=== PATIENT | female | born 1965 | race Two or more races ===

== ENCOUNTER 2024-05-17 08:45 | Emergency (ER) | payer BC, MEDICAID ==
[~2024-05-17] VITALS: Ht 154.9 cm; Wt 76.8 kg
[2024-05-17 09:20] LABS: Basophils # (auto) 0 10 ^3/uL (0-0.2); Basophils % (auto) 0.8 % (0.0-2.0); Eosinophils # (auto) 0.2 10 ^3/uL (0-0.8); Eosinophils % (auto) 4.8 % (0.0-7.0); Hematocrit 40.1 % (36.0-46.0); Hemoglobin 13.7 g/dL (12.2-16.2); Lymphocytes % (auto) 30.9 % (10.0-50.0); Mean Corpuscular Hemoglobin 31.2 pg (28.0-32.0); Mean Corpuscular Hgb Conc. 34.2 g/dL (32.0-36.0); Mean Corpuscular Volume 91.2 fL (80.0-100.0); Monocytes # (auto) 0.3 10 ^3/uL (0-1.3); Monocytes % (auto) 9.8 % (0.0-12.0); Neutrophils # (auto) 1.8 10 ^3/uL (1.6-8.6); Neutrophils % (auto) 53.7 % (37.0-80.0); Nucleated Red Blood Cells % 0.4 %; Platelet Count (auto) 229 10^3/uL (140-450); Red Cell Distribution Width 14.2 % (11.8-14.3); White Blood Cell 3.3 10^3/uL (4.4-10.8)
[2024-05-17 09:35] LABS: Alanine Aminotransferase 10 U/L (7-40); Albumin 4.1 g/dL (3.2-4.8); Alkaline Phosphatase 101 U/L (46-116); Anion Gap 6 (5-15); Aspartate Aminotransferase 12 U/L (13-40); BUN/Creatinine Ratio 10.6 (10.0-20.0); Bilirubin, Total 0.5 mg/dL (0.2-1.0); Blood Urea Nitrogen 10 mg/dL (9-23); Calcium 9.5 mg/dL (8.7-10.4); Carbon Dioxide 26 mmol/L (20-31); Chloride 110 mmol/L (98-107); Glucose 94 mg/dL (74-106); Potassium 3.7 mmol/L (3.5-5.1); Sodium 142 mmol/L (136-145)
[2024-05-17] MEDS: MORPHINE SULFATE 4 MG/ML SYR/VIAL IV ONE (10:23)
[2024-05-17] MEDS: ONDANSETRON HCL 4 MG/2 ML VIAL IV ONE (10:23)
[2024-05-17] MEDS: ASPirin 325 MG TAB PO ONE (10:23)
[2024-05-17] MEDS: NITROGLYCERIN 0.4 MG SL TAB SL ONE (10:24)
[2024-05-17 12:15] VITALS: PULSE 68; RESP 12; O2SAT 99
[2024-05-17 13:11] LABS: Urine Bacteria None Seen /hpf (None Seen); Urine Blood Negative /uL (Negative); Urine Clarity Clear (Clear); Urine Color Light-Yellow (Yellow); Urine Protein, UAD Negative (Negative); Urine Specific Gravity 1.018 (1.001-1.035); Urine Urobilinogen Normal (Negative); Urine WBC <1 /hpf (0 - 5); Urine pH 7.5 (5.0-9.0)
[2024-05-17] MEDS: HYDROcodone-ACET 5/325MG TAB PO ONE (17:36)
[2024-05-17] MEDS: ONDANSETRON ODT 4 MG TAB PO ONE (17:36)
[2024-05-17 19:35] VITALS: BP 123/72; PULSE 82; RESP 14; TEMP 98.4; O2SAT 95
== END 2024-05-17 20:00 | disposition short-term general hospital (02) ==
LOC: ER 08:45
DX: I16.0 Hypertensive urgency (principal); R07.89 Other chest pain
CPT/HCPCS: 36415; 71045; 80053; 81001; 84484; 85025; 93005; 96374; 96375; 99285; J2270; J2405; Q0162